=== PATIENT | male | born 1985 | race Caucasian/White ===

== ENCOUNTER 2016-06-09 17:06 | Emergency (ER) | payer OTHER ==
[~2016-06-09] VITALS: Ht 167.6 cm; Wt 85.0 kg
[2016-06-09 17:08] VITALS: Ht 167.6 cm; Wt 85.0 kg
--- NOTE | 2016-06-09 17:20 | NUR ---
IV/LAB 20G TO R HAND STARTED BY THIS RN ON FIRST ATTEMPT. LABS COLLECTED AT THIS TIME. LAB COLLECTED FOR MARY STEEN AFTER PT HAD VERBALIZED UNDERSTANDING AND PROVIDED CONSENT. SITE PATENT, FLUSHES EASILY.
[2016-06-09] MEDS ORDERED: NORMAL SALINE 1,000 ML IV ONE (17:30)
[2016-06-09 17:39] LABS: BASOPHILS % (AUTO) 0.3 % (0-2); EOSINOPHILS # (AUTO) 0.1 T/MM3 (0-0.5); EOSINOPHILS % (AUTO) 1.2 % (0-4); HCT - HEMATOCRIT 42.9 % (41-53); HGB - HEMOGLOBIN 15.5 GM/DL (13.5-17.5); IMMATURE GRANULOCYTE # (AUTO) 0.04 T/MM3 (0.00-0.03); IMMATURE GRANULOCYTE % (AUTO) 0.4 % (0.0-0.5); LYMPHOCYTES # (AUTO) 1.9 T/MM3 (1-4.8); MEAN CORPUSCULAR HGB 30.7 UUG (26-34); MEAN CORPUSCULAR HGB CONC(MCHC 36.1 GM/DL (31-37); MONOCYTES # (AUTO) 0.6 T/MM3 (0-0.8); MONOCYTES % (AUTO) 5.7 % (0-9.0); NEUTROPHILS #(AUTO)-ABSOLUTE 8.2 T/MM3 (1.8-7.7); NEUTROPHILS % (AUTO) 75.4 % (33-66); RED BLOOD COUNT 5.05 M/MM3 (4.50-5.90); WBC - WHITE BLOOD COUNT 10.9 T/MM3 (4.5-11.0)
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
[2016-06-09 17:45] LABS: ALBUMIN 4.5 G/DL (3.5-5.0); ALBUMIN/GLOBULIN RATIO 1.4 RATIO (1.1-2.2); ALKALINE PHOSPHATASE 109 U/L (38-126); ALT (SGPT) 48 U/L (21-72); ANION GAP 16 MEQ/L (5-15); AST (SGOT) 35 U/L (17-59); BUN/CREATININE RATIO 15 RATIO (6-26); CALCIUM 9.5 MG/DL (8.4-10.2); CHLORIDE 103 MEQ/L (98-107); CO2 - CARBON DIOXIDE 25 MEQ/L (22-30); CREATININE 0.8 MG/DL (0.8-1.5); ETHANOL 83 MG/DL (<10); GLOMERULAR FILTRATION RATE 115; GLUCOSE 147 MG/DL (75-110); POTASSIUM 3.2 MEQ/L (3.6-5); SODIUM 144 MEQ/L (134-144); TOTAL PROTEIN 7.8 G/DL (6.3-8.2)
[2016-06-09] MEDS ORDERED: No current meds. (18:23)
[2016-06-09 19:25] VITALS: BP 132/76; PULSE 107; RESP 16; TEMP 98.4; O2SAT 98
--- NOTE | 2016-06-10 08:03 | DI ---
Indication: ITS.REASON: trauma PROCEDURE: CHEST 1 VIEW: Encounter: Initial Comparison: None FINDINGS: The lungs are clear. There is no abnormal airspace opacity, pleural effusion or pneumothorax identified. The heart size, pulmonary vasculature and mediastinum are within normal limits. No significant skeletal abnormality is seen. IMPRESSION: No acute cardiopulmonary abnormality. .
--- NOTE | 2016-06-10 08:03 | DI ---
Indication: ITS.REASON: trauma PROCEDURE: PELVIS 1-2 VIEW DEDICATED PELV: Encounter: Initial Comparison: None Findings: There is no acute fracture, dislocation or malalignment identified. Impression: No acute osseous abnormality. .
--- NOTE | 2016-06-10 08:04 | DI ---
Indication: ITS.REASON: trauma PROCEDURE: CT HEAD W/O CONTRAST: Encounter: Initial Comparison: None Technique: Axial CT images through the head were performed without contrast. Iterative Reconstruction dose reducing technique was utilized. FINDINGS: The ventricles are of normal size, shape, and configuration for the patient's age. There is no evidence of acute intracranial hemorrhage, midline displacement, or mass effect. The CT attenuation of the brain parenchyma is normal within the cerebellum, brain stem, and cerebral hemispheres. The tympanic cavities and mastoid air cells are free of appreciable disease. There are no definite fractures of the skull base, calvarium, or visualized portion of the midface. Posterior scalp swelling and hematoma. IMPRESSION: No CT evidence of acute traumatic intracranial injury. There is a preliminary report by [employer]. .
--- NOTE | 2016-06-10 08:05 | DI ---
Indication: ITS.REASON: neck pain / trauma PROCEDURE: CT CERVICAL SPINE W/O CONTRAST: Encounter: Initial Comparison: None Technique: Axial CT images through the cervical spine were performed without contrast. Coronal and sagittal reformatted images were also obtained. Automated Exposure Control and Iterative Reconstruction dose reducing techniques were utilized. FINDINGS: The alignment of the cervical spine is normal. There is no evidence of acute fracture or subluxation of the cervical spine. The facet joints are well aligned with preservation of the intervertebral disk and facet joints. The atlantoaxial articulation, dens, and upper cervical spine demonstrate no subluxation. There is no evidence of significant spinal stenosis, foraminal compromise, or significant disk herniation. The paraspinal soft tissues and spinal canal appear unremarkable. IMPRESSION: No acute traumatic abnormality of the cervical spine. There is a preliminary report by [employer]. .
--- NOTE | 2016-06-10 08:06 | DI ---
Indication: ITS.REASON: trauma / missing tooth #8 PROCEDURE: CT MAXILLOFACIAL W/O CONTRAST: Encounter: Initial Comparison: None Technique: Axial noncontrast CT images through the mid face were performed with coronal and sagittal two-dimensional reformats. Automated Exposure Control and Iterative Reconstruction dose reducing techniques were utilized. Findings: The right maxillary medial incisor is absent with a fracture of the socket. No additional acute fractures identified. Prior dental restorations. Unerupted mandibular canines. The paranasal sinuses are grossly clear. Impression: Dislocation of the right maxillary medial incisor with fracture of the tooth socket. Dental consultation is recommended. There is a preliminary report by [employer]. .
--- NOTE | 2016-06-10 08:08 | DI ---
Indication: ITS.REASON: Trauma/ Back pain PROCEDURE: CT THORACIC SPINE W/O CONTRAST: Encounter: Initial Comparison: None: Technique: Axial noncontrast CT imaging of the thoracic spine was performed with coronal and sagittal two-dimensional reformats. Automated Exposure Control and Iterative Reconstruction dose reducing techniques were utilized. FINDINGS: Alignment of the thoracic spine is normal for the patient's age. There are minimal, age appropriate, degenerative changes within the intervertebral disk and facet joints in the thoracic spine. Probable physiologic wedging at T12 and L1, less than 25%. No fractures are evident in the thoracic spine. The vertebral bodies and facet joints are normally aligned. There is no evidence of significant spinal stenosis, foraminal compromise, epidural hematoma, or significant disk herniation. The paraspinal soft tissues and central spinal canal appear unremarkable. IMPRESSION: No acute traumatic abnormality of the thoracic spine. There is a preliminary report by [employer]. .
--- NOTE | 2016-06-10 08:10 | DI ---
Indication: ITS.REASON: trauma / back pain PROCEDURE: CT LUMBAR SPINE W/O CONTRAST: Encounter: Initial Comparison: None Technique: Axial noncontrast CT imaging of the lumbar spine was performed with coronal and sagittal two-dimensional reformats. Automated Exposure Control and Iterative Reconstruction dose reducing techniques were utilized. FINDINGS: The alignment of the lumbar spine is normal for the patient's age. Minimal anterior physiologic wedging of T12 and L1, less than 25%. No fractures or traumatic subluxation of the lumbar spine is evident. The facet joints are well aligned with preservation of the intervertebral disk and facet joints. There are age appropriate degenerative changes within the intervertebral disks and facet joints in the lower lumbar region. There is no evidence of significant spinal stenosis, foraminal compromise, disk herniation, or epidural hematoma. The paraspinal soft tissues and spinal canal are otherwise unremarkable in appearance. IMPRESSION: No evidence for acute traumatic injury of the lumbar spine. There is a preliminary report by [employer]. .
== END 2016-06-09 19:25 ==
LOC: ED 17:06
DX: S02.40CA Maxillary fracture, right side, initial encounter for closed fracture (principal); S08.0XXA Avulsion of scalp, initial encounter; K08.119 Complete loss of teeth due to trauma, unspecified class; V86.59XA Driver of other special all-terrain or other off-road motor vehicle injured in nontraffic accident, initial encounter; Y93.89 Activity, other specified; Y92.009 Unspecified place in unspecified non-institutional (private) residence as the place of occurrence of the external cause; Y99.8 Other external cause status
CPT/HCPCS: 80053; 80307; 85025